=== PATIENT | female | born 1930 | race Caucasian/White ===

== ENCOUNTER → 2017-02-18 | Outpatient (CLI) | payer OTHER, MEDICARE ==
[~2017-02-18] VITALS: Ht 170.2 cm; Wt 88.0 kg
[~2017-02-18] MED LIST: ASPIR 8181 MG PO; CARDIZEM CD180 MG PO; CRESTOR10 MG PO; CRESTOR20 MG PO; HYZAAR 100-12.1 EACH PO; KLOR-CON 1010 MEQ PO; LEVOTHYROXIN0.075 MG PO; NORVASC10 MG PO; XARELTO15 MG PO
--- NOTE | ~2017-02-18 | HPC ---
[facility] [place] [place] [address] PAIN MANAGEMENT CONSULTATION Name: OLGA TATUM Room #: REG MAHESH Betsy#: [id number] Admission: 02/18/17 Attend Phys: Jordan Orellana DO Discharge: Date of : 30 Report #: [id number] THIS REPORT FOR: //name// CC: Angelito Barros DATE OF SERVICE: 02/18/2017 The patient is a pleasant 87-year-old female seen in consultation at the request of Dr. Davidson for evaluation of pain, low back, right lateral hip, thigh, down to the calf with a burning aspect of pain in the lateral calf. She notes pain has been present since 04/2014. She had tripped over her 's oxygen tubing, fell striking her knees. Within about 24 hours, pain started, has been quite problematic since. It has been continuous and burning and stabbing. She rates it a 7-10 on a VAS. She notes pain is exacerbated with rising from a sitting position or walking, gets some relief when she is recumbent. Has tried Tylenol and steroid injections, all with short-term relief. She denies any myelopathic symptoms. REVIEW OF SYSTEMS: Complete review of systems is attached to chart and gone over with the patient. She is now . She does not smoke, drink alcohol to excess. History of hypertension, treated with losartan and hydrochlorothiazide along with diltiazem. Atrial fibrillation for which she is on Xarelto. Levothyroxine for hypothyroidism and Crestor for dyslipidemia. SURGICAL HISTORY: Reviewed. 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 She has had 4 children, 2 sons and 2 daughters. Tragically one of her children has passed. Pain impact score averages about 5.2 for all indices queried. PHYSICAL EXAMINATION: Reveals a 5 feet 7 inches, 194-pound female, BMI is 30.4 kg/m2. Blood pressure is 184/75, pulse 69, respirations are 20. Cranial nerves 2-12 are grossly intact. Pupils are equal and reactive to light and accommodation. Extraocular muscles are intact. She does have a little bilateral arcus senilis. Thyroid is unremarkable. Cervical range of motion is full. Upper extremity strength is preserved. Heart is irregularly irregular with a subtle 1-2/6 systolic ejection murmur, pulses in the 60 range. Lungs are clear to auscultation. Abdomen shows an endomorphic build. Markedly antalgic gait with hyperlordosis, tender over the SI joints. Positive straight leg raise [facility] [address] [place] [address] PAIN MANAGEMENT CONSULTATION Name: OLGA TATUM Room #: REG MAHESH Meyer#: [id number] Admission: 02/18/17 Attend Phys: Jordan Orellana DO Discharge: Date of : 30 Report #: [id number] on the right with slight decreased right hip flexion, lower extremity extension strength. Patellar and Achilles reflexes do appear to be preserved. Gayle test is negative. DIAGNOSTIC STUDIES: Include MRI of the lumbar spine from 09/24/2016 notes bilateral facet arthropathy throughout from L1 down to S1. L4-L5 notes a superimposed right paracentral disk herniation with bilateral facet arthropathy and bilateral neural foraminal stenosis. ASSESSMENT: Symptomatic lumbar radiculopathy secondary to spinal stenosis, component of lumbar spondylosis and atrial fibrillation. RECOMMENDATIONS: Discussion with the patient today about therapeutic option. We elected to move forward with epidural injection under fluoroscopy, L4-L5. Three days off Eliquis. We will have the patient follow up in 3-4 weeks subsequent for consideration for repeat injection if indicated clinically. Thanks for allowing me to participate in the patient's care. I will keep you abreast of her progress. <ELECTRONICALLY SIGNED> By: Jordan Orellana DO 02/19/17 0654 1229 0103 Jordan Orellana DO /nt
[2017-02-18 10:54] VITALS: BP 184/75
== END ==
LOC: PAIN 07:44
DX: M47.26 Other spondylosis with radiculopathy, lumbar region (principal); M48.061 Spinal stenosis, lumbar region without neurogenic claudication; I48.91 Unspecified atrial fibrillation

== ENCOUNTER → 2017-05-13 | Outpatient (CLI) | payer OTHER, MEDICARE ==
[~2017-05-13] VITALS: Ht 170.2 cm; Wt 94.0 kg
[~2017-05-13] MED LIST changes: +COQ-10100 MG PO; +ELIQUIS5 MG PO; +PACERONE 200 M200 M1 PO; +VOLTAREN GEL 1100 G2 TOP
--- NOTE | ~2017-05-13 | HPC ---
[facility] [place] [place] [address] PAIN MANAGEMENT CONSULTATION Name: OLGA TATUM Room #: REG REBECCAJose L Castro.#: [id number] Admission: 05/13/17 Attend Phys: Jordan Orellana DO Discharge: Date of : 30 Report #: [id number] THIS REPORT FOR: //name// CC: Angelito Orellana HISTORY OF PRESENT ILLNESS: The patient is an 87-year-old female, prior seen in the pain clinic back in January with symptomatic lumbar radiculopathy. She had an epidural injection at that time with overall good improvement of pain. She returns to pain clinic today. She has significant interval medical history change. She was found to have atrial fibrillation, has been started on Eliquis. She notes the last injection in January afforded 50% relief, lasted for 2-3 weeks, pain has begun to recur. She is getting some paresthesia in the right knee to her foot with loss of sensation here. She does have subjective "drop foot" on this side; however, objective exam actually shows fairly good strength. She has not had any falls since last visit. She rates her pain as 7 on a VAS. Pain is in the low back, radiating to the right buttock and leg. PHYSICAL EXAMINATION: Shows an 87-year-old female, BMI is 32.4 kilograms per meter squared. Blood pressure 166/74, pulse 90, respirations 18. Marked antalgic gait. Tender from about L5 down. She does have a hyperlordotic curve. Right hip flexion strength is diminished. Positive straight leg raise on this side. Patellar reflex is diminished compared to the left, 1/4 versus 2/4. Skin/integument is intact. DIAGNOSTIC STUDIES: Include MRI from 09/2016. She has bilateral facet arthropathy at L1-L2, L2-L3 and L3-L4. Canal is narrowed at L3-L4 down to about 0.7 cm. L4-L5 does note superimposed right paracentral disk herniation with bilateral facet arthropathy. ASSESSMENT: 1. Symptomatic lumbar radiculopathy. 2. Axial back pain. 3. Lumbar spondylosis. 4. New history of atrial fibrillation and neuropathic pain. RECOMMENDATIONS: 1. Continue current medication unchanged (she has been off Eliquis for 4 days). 2. Epidural injection under fluoroscopy today at L4-L5. 3. Refer to neurosurgery for possible definitive intervention. She has had good relief with prior injection in January and February with recurrent symptoms and some increasing weakness. I want to make sure that there is no surgical pathology, which can be corrected. 4. If she does not get good relief with injection today and is not a surgical candidate, we will start the patient on membrane stabilizing agent (gabapentin?) at next visit. [address] [address] PAIN MANAGEMENT CONSULTATION Name: DEEPTIOLGA Room #: REG CLJose L Meyer#: [id number] Admission: 05/13/17 Attend Phys: Jordan Orellana DO Discharge: Date of : 30 Report #: [id number] Thank you for allowing me to participate in the patient's care. PROCEDURE: Lumbar epidural injection under fluoroscopy. PROCEDURE NOTE: After both written and informed consent to include risk of spinal cord damage, increased pain, weakness and dural puncture, the patient was taken to the fluoroscopy suite, placed in the prone position. After sterile prep and drape, a skin wheal with lidocaine was raised. A 22-gauge epidural Tuohy needle was inserted in the midline at L4-L5 with good loss to resistance. Negative aspiration for cerebrospinal fluid or blood was noted. Then 1 mL of Omnipaque under biplanar fluoroscopy showed good spread within the epidural space. This was followed with 80 mg of triamcinolone plus 1 mL of 1.5% preservative-free Xylocaine, 0.5 mL Xylocaine was then injected to flush the needle; it was removed. The patient was monitored for an appropriate period of time and discharged in good and stable condition. <ELECTRONICALLY SIGNED> By: Jordan Orellana DO 05/14/17 0757 1608 2220 Jordan Orellana DO /nt
[2017-05-13 11:09] VITALS: BP 166/74
== END | disposition home or self-care (01) ==
LOC: PAIN 03-22 13:46
DX: M47.26 Other spondylosis with radiculopathy, lumbar region (principal); Z68.32 Body mass index [BMI] 32.0-32.9, adult

== ENCOUNTER → 2017-06-10 | Outpatient (CLI) | payer OTHER, MEDICARE ==
[~2017-06-10] VITALS: Ht 170.2 cm; Wt 94.3 kg
--- NOTE | ~2017-06-10 | HPC ---
[facility] [place] [place] [address] PAIN MANAGEMENT CONSULTATION Name: OLGA TATUM Room #: REG [facility] Gloria.#: [id number] Admission: 06/10/17 Attend Phys: Jordan Orellana DO Discharge: Date of : 30 Report #: [id number] THIS REPORT FOR: //name// CC: Angelito Orellana The patient is a pleasant 87-year-old female, prior seen in pain clinic, given epidural injection on 05/13/2017. She returns to pain clinic today noting that the injection did afford good relief. The patient specifically notes 65% relief for 2 weeks. She is able to walk and stand with less pain currently. Still ongoing relief, though she does rate her pain as 6 on a VAS. PHYSICAL EXAMINATION: Shows a pleasant 87-year-old female with history of atrial fibrillation. She has been off her Eliquis for 3 days now. VITAL SIGNS: 5 feet 7 inches, 207 pounds. BMI is 32.5 kilograms per meter squared. Blood pressure 166/80, pulse 93, respirations are 20. She has not fallen in the last 3 months. Medications reconciled. Functional assessment tool 35/70. Rises from chair using armrest. Diffuse tenderness across the low back. There is a component of facet generated pain along with lumbar radiculopathy. We reviewed her MRI from 09/24/2016. It does show bilateral facet arthropathy at L1-2, L2-3, L3-4, L4-5 and L5-S1. Canals narrowed at L3-L4 to 0.7 cm. There is a small right focal disk at L4-L5. ASSESSMENT: Symptomatic lumbar radiculopathy and lumbar spondylosis. RECOMMENDATIONS: Discussion with the patient today about therapeutic option, would like to repeat epidural injection under fluoroscopy today. Resume Eliquis tonight. Voltaren gel topically for some right knee subjective pain and stiffness (anterior and posterior cruciate as well as medial and lateral collateral ligaments are intact. There is no ballottable edema in the knee). After L4-L5 epidural injection today, again resume Eliquis. Follow up in 3 weeks for reevaluation, may consider facet directed epidurals at next visit. She will not have to be off Eliquis for that. ASSESSMENT: Symptomatic lumbar radiculopathy. PROCEDURE: Lumbar epidural injection under fluoroscopy. PROCEDURE NOTE: After both written and informed consent to include risk of spinal cord damage, increased pain, weakness and dural puncture, the patient was taken to the fluoroscopy suite, placed in the prone position. After sterile prep and drape, a skin wheal with lidocaine was raised. A 22-gauge epidural Tuohy needle was inserted in the midline at L4-L5 with good loss to resistance. Negative aspiration for cerebrospinal fluid or blood was noted. Then 1 mL [address] [address] PAIN MANAGEMENT CONSULTATION Name: OLGA TATUM Room #: REG [facility] Betsy#: [id number] Admission: 06/10/17 Attend Phys: Jordan Orellana DO Discharge: Date of : 30 Report #: [id number] Omnipaque under biplanar fluoroscopy showed good spread within the epidural space. This was followed with 80 mg of triamcinolone plus 1 mL of 1.5% preservative-free Xylocaine, 0.5 mL Xylocaine was then injected to flush the needle; it was removed. The patient was monitored for an appropriate period of time and discharged in good and stable condition. The patient is to resume Eliquis tomorrow. <ELECTRONICALLY SIGNED> By: Jordan Orellana DO 06/16/17 0725 0701 1218 Jordan Orellana DO /nt
[2017-06-10 11:07] VITALS: BP 166/80
== END ==
LOC: PAIN 06-03 10:30
DX: M47.26 Other spondylosis with radiculopathy, lumbar region (principal); M48.061 Spinal stenosis, lumbar region without neurogenic claudication; Z68.32 Body mass index [BMI] 32.0-32.9, adult

== ENCOUNTER → 2017-06-28 | Outpatient (CLI) | payer OTHER, MEDICARE ==
[~2017-06-28] VITALS: Ht 170.2 cm; Wt 94.3 kg
--- NOTE | ~2017-06-28 | HPC ---
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 She is being treated for right lumbar radicular pain. We had had transient relief with epidural injections midline approach January, February and again 06/10/2017. Last visit, she was having some ongoing axial back pain. We are concerned for component of lumbar spondylosis. We talked about moving forward with facet joint injections if this injection does not afford good relief. The patient does return to the pain clinic noting that the last injection again afforded good yet transient relief. The patient specifically notes 50% relief. She is actually able to stand and walk with less pain. She is still unable to climb stairs due to some right hip flexion weakness. DIAGNOSTIC STUDIES: Note bilateral neural foraminal narrowing at L3-L4 with some facet hypertrophy and overall canal narrowing down to 0.7 cm. Some compression of the thecal sac is noted with crowding of the nerve roots; however, she does have a small right paracentral disk protrusion at L4-L5. There is some mild narrowing of the canal. PHYSICAL EXAMINATION: Shows a pleasant 87-year-old female, BMI is 32.5 kilograms per meter squared. Blood pressure shows modest hypertension 171/91, pulse 106, respirations are 20. Subjective pain score 6 on a VAS. She has been off her Eliquis for 4 days. She has not fallen in the last 6 weeks. She rises from chair using armrests, antalgic gait. Does have thoracolumbar kyphosis, some diffuse lumbar tenderness, no discrete trigger points are noted. Rotation and sidebending does not exacerbate pain. Axial component of back pain appears to be fairly nominal. Does have decreased right hip flexion strength. Positive straight leg raise on the right. ASSESSMENT: Symptomatic lumbar radiculopathy, component of lumbar spondylosis, the patient off Eliquis (history of atrial fibrillation). RECOMMENDATIONS: Discussion with the patient today about therapeutic option. We elected to trial a transforaminal epidural approach today and see if we can get more steroid to the anterior portion of the cord with a herniated disk. If this does not afford adequate relief, we will have the patient follow up with Dr. Morgan for consideration [place] [address] PAIN MANAGEMENT CONSULTATION Name: DEEPTIOLGA Room #: REG MAHESH Meyer#: [id number] Admission: 06/28/17 Attend Phys: Jordan Orellana DO Discharge: Date of : 30 Report #: [id number] ASSESSMENT: Symptomatic lumbar radiculopathy, right L4 radicular pain pattern. RECOMMENDATION: Transforaminal epidural injection under fluoroscopy. PROCEDURE: Transforaminal lumbar epidural injection under fluoroscopy. PROCEDURE NOTE: After both written and informed consent was obtained including risk of spinal cord damage, infection, increased pain and paralysis, the patient agreed to proceed. The patient was taken to the fluoroscopy suite, placed in a prone position with appropriate abdominal bolstering. After sterile prep with ChloraPrep and sterile drape, a skin wheal with 1% Xylocaine was raised. A 22 gauge 4-1/2 inch epidural Tuohy needle was inserted. From an oblique approach into the posterior-superior aspect of the left L4-L5 neural foramen with continuous pressure on the glass syringe plunger for loss of resistance. Glass syringe was filled with 2 cc of 0.1 Xylocaine. The glass loss of resistance syringe was removed. A low volume extension tubing was connected, negative aspiration was accomplished for cerebrospinal fluid or blood. 1 mL of Omnipaque was injected which showed spread both within the epidural space and laterally along the nerve root. This was followed with 80 mg of triamcinolone plus 1 mL of 1.5% preservative-free Xylocaine. Needle was partially withdrawn, 0.5 mL of Xylocaine was injected to clear the needle and the needle was removed. The area was cleansed, band-aid was applied. The patient was allowed to ambulate to the recovery room, discharged in good and stable condition. I intended to perform a right L4-L5 transforaminal epidural injection. I noted some osseous hypertrophy on the right. We proceeded with a left transforaminal epidural injection and did achieve good anterior flow of steroid. The patient was monitored for an appropriate period of time, discharged in good and stable condition. I am pleased to note she had good incremental relief of pain, it had been 6 on VAS admission, was absent, being a 0/10 on discharge. <ELECTRONICALLY SIGNED> By: Jordan Orellana DO 06/30/17 0820 1212 1228 Jordan Orellana DO /nt
[2017-06-28 10:23] VITALS: BP 171/91
== END | disposition home or self-care (01) ==
LOC: PAIN 07:21
DX: M54.16 Radiculopathy, lumbar region (principal); M47.896 Other spondylosis, lumbar region; G89.29 Other chronic pain; I10 Essential (primary) hypertension; I48.91 Unspecified atrial fibrillation; Z79.01 Long term (current) use of anticoagulants; Z79.899 Other long term (current) drug therapy; Z98.890 Other specified postprocedural states

== ENCOUNTER 2017-08-12 08:51 | Inpatient (IN) | payer OTHER, MEDICARE ==
[~2017-08-12] VITALS: Ht 170.2 cm; Wt 93.1 kg
--- NOTE | ~2017-08-12 | EKG ---
[address] [place] [address] ELECTROCARDIOGRAM REPORT Name: OLGA TATUM Room #: 214-P ADM IN M.R.#: [id number] Admission: 08/12/17 Attend Phys: Barry Jameson Discharge: Date of : 30 Report #: [id number] THIS REPORT FOR: //name// [facility] Test Date: 2017-08-12 Test Time: 13:16:04 Pat Name: OLGA TATUM Department: Room: 214 P Gender: F [employer] Assistant: Ade HICKEY : 1930 Requested By: Kathe Hanley Order Number: [id number] MD: Ramsey Price Measurements Intervals [place] Rate: 82 P: MD: QRS: 50 QRSD: 93 T: 64 QT: 357 QTc: 417 Interpretive Statements Sinus rhythm Nonspecific T abnormalities, lateral leads Compared to ECG 07/06/2014 20:51:38 sinus rhythm has replaced atrial fibrillation nonspecific change in the ST and T-wave segments Electronically Signed On 08-12-2017 17:32:16 CDT by Ramsey Price [email or web address] <ELECTRONICALLY SIGNED> By: Ramsey Price MD, [facility] 08/12/17 1732 1316 1316 Ramsey Price MD, [facility] /EPI
--- NOTE | ~2017-08-12 | P ---
[facility] [place] [address] PROCEDURE REPORT Name: OLGA TATUM Room #: 214-P DIS IN M.R.#: [id number] Admission: 08/12/17 Attend Phys: Barry Jameson Discharge: 08/13/17 Date of : 30 Report #: [id number] THIS REPORT FOR: //name// CC: Barry Davidson DATE OF SERVICE: 08/13/2017 PROCEDURES: 1. Electrical cardioversion. 2. Supervision of conscious sedation. INDICATIONS: The patient is a very pleasant 87-year-old female with symptomatic atrial fibrillation, which is paroxysmal. MANAGER PROCESS: Barry Jameson M.D. BRIEF DESCRIPTION: Informed consent was obtained, the patient brought to the cardiac catheterization laboratory, prep and hold. Was sedated with 2 of Versed and 25 of Demerol IV push. Continuous electrocardiographic and oximetric monitoring was performed throughout the procedure. Utilizing AP pads, a synchronized 200 joule biphasic shock was then performed, which converted the patient to sinus mechanism with a first-degree AV block. She was allowed to recover and was monitored closely. She did not have any complications, tolerated the procedure well. By: [id number] Barry Jameson MD /nt
--- NOTE | ~2017-08-12 | D ---
[facility] [place] [address] DISCHARGE SUMMARY Name: OLGA TATUM Room #: 214-P [facility] IN M.R.#: [id number] Admission: 08/12/17 Attend Phys: Barry Jameson Discharge: 08/13/17 Date of : 30 Report #: [id number] THIS REPORT FOR: //name// CC: Barry Davidson DATE OF SERVICE: 08/13/2017 ADMITTING DIAGNOSIS: Symptomatic paroxysmal atrial fibrillation. DISCHARGE DIAGNOSIS: Symptomatic paroxysmal atrial fibrillation. PROCEDURE PERFORMED: None. FOLLOWUP: 1. Dr. Barry Jameson in 4 weeks. 2. Nurse practitioner Kathe in 7-10 days. DISCHARGE MEDICATIONS: 1. Home meds. 2. Amiodarone 200 mg p.o. b.i.d. for a week, then q.a.m. daily. BRIEF CLINICAL HISTORY: See history and physical in the chart. HOSPITAL COURSE: The patient was admitted to the hospital and was started on IV amiodarone. The patient converted overnight to sinus rhythm with a first-degree AV block. In view of this, electrical cardioversion was canceled. She was allowed to ambulate and was discharged in improved and stable condition to follow up with the previously stated discharge instructions and medications. <ELECTRONICALLY SIGNED> By: Barry Jamseon MD 08/20/17 2102 1917 25 Barry Jameson MD /fozia
--- NOTE | ~2017-08-12 | H ---
[facility] [place] [place] [address] HISTORY AND PHYSICAL Name: OLGA TATUM Room #: 214-P [facility] IN M.R.#: [id number] Admission: 08/12/17 Attend Phys: Barry Jameson Discharge: 08/13/17 Date of : 30 Report #: [id number] THIS REPORT FOR: //name// CC: Barry Davidson DATE OF SERVICE: 08/12/2017 HISTORY OF PRESENT ILLNESS: This is a very pleasant female who had been seen as an outpatient for shortness of breath and irregular heartbeat, was found to be in atrial fibrillation. She subsequently had a noninvasive workup with a recent perfusion scan showing no significantly large area of ischemia. In view of this, she is being brought in after 4 weeks of anticoagulation with Eliquis for chemical cardioversion and initiation of antiarrhythmic medication. She has no orthopnea, PND, syncope or near syncope currently. PHYSICAL EXAMINATION: GENERAL: Shows well-developed, well-nourished female, resting comfortably, in no acute distress. VITAL SIGNS: Noted in the chart. HEENT: Normocephalic, atraumatic. Pupils are equal, round, reactive to light and accommodation. Extraocular muscles are intact. Sclerae and conjunctivae are anicteric. NECK: JVD is normal. Carotid upstrokes are bilaterally symmetrical. No bruits are heard. No thyromegaly. No lymphadenopathy. LUNGS: Clear to auscultation. No wheezes, rhonchi or crackles. No CVA tenderness. CARDIAC: Demonstrates an irregularly irregular rhythm with a controlled ventricular response. ABDOMEN: Soft, nontender, nondistended. Normal bowel sounds. EXTREMITIES: Without cyanosis, clubbing or edema. Distal pulses are intact. DTR symmetrical. NEUROLOGIC: Cranial nerves 2-12 are grossly normal and symmetrical. PSYCHIATRIC: Alert, oriented with normal affect. SKIN: Warm and dry. IMPRESSION AND PLAN: Atrial fibrillation, presumed to be paroxysmal, new in onset. After 4 weeks of anticoagulation, she is here for chemical cardioversion with initiation of antiarrhythmic medications. If this failed to convert to sinus mechanism, then she is to undergo electrical cardioversion. The risks, complications, and alternative including both chemical and electrical [address] [address] HISTORY AND PHYSICAL Name: OLGA TATUM Room #: 214-P [facility] IN [facility].#: [id number] Admission: 08/12/17 Attend Phys: Barry Jameson Discharge: 08/13/17 Date of : 30 Report #: [id number] cardioversion as well as conscious sedation have been discussed with the patient. She voiced understanding and wishes to proceed. <ELECTRONICALLY SIGNED> By: Barry Jameson MD 08/20/17 1919 0805 0850 Barry Jameson MD /nt
[~2017-08-12 08:51] MED LIST changes: -PACERONE 200 M200 M1 PO
[2017-08-12 12:30] VITALS: BP 120/78
[2017-08-12 13:31] LABS: HEMATOCRIT 38.8 % (37.0-47.0); HEMOGLOBIN 13.5 gm/dL (12.0-15.0); MCH 30.9 pg (26.0-34.0); MCHC 34.8 g/dL (28.0-37.0); MCV 88.8 fL (80.0-100.0); RBC 4.37 mil/uL (4.20-5.00); RDW 14.5 % (10.5-14.5); WBC 18.2 thou/uL (4.0-11.0)
[2017-08-12 13:38] LABS: CALCIUM 9.8 mg/dL (8.5-10.1); CREATININE 1.2 mg/dL (0.6-1.0); POTASSIUM 3.3 mmol/L (3.5-5.1)
[2017-08-12] MEDS ORDERED: ELIQUIS5 MG PO (15:22)
[2017-08-12 16:55] VITALS: BP 115/82
[2017-08-12 19:30] VITALS: BP 148/79
[2017-08-13 03:50] VITALS: BP 134/63
[2017-08-13 08:10] LABS: HEMATOCRIT 38.1 % (37.0-47.0); HEMOGLOBIN 12.8 gm/dL (12.0-15.0); MCH 30.2 pg (26.0-34.0); MCHC 33.7 g/dL (28.0-37.0); MCV 89.6 fL (80.0-100.0); RBC 4.25 mil/uL (4.20-5.00); RDW 14.6 % (10.5-14.5); WBC 13.4 thou/uL (4.0-11.0)
[2017-08-13 08:43] LABS: CREATININE 1.3 mg/dL (0.6-1.0)
[2017-08-13] MEDS ORDERED: PACERONE 200 M200 M1 PO (09:56)
[2017-08-13 10:00] VITALS: BP 150/74
== END 2017-08-13 11:09 | disposition home or self-care (01) | DRG 310 ==
LOC: NUC 08:51 → 2N 12:04 → ENTRNSPT 08-13 10:44 → 2N 08-13 11:09
PROVIDERS: Internal Medicine Cardiovascular Disease; Nurse Practitioner Gerontology
PROC: 5A2204Z Restoration of Cardiac Rhythm, Single (ICD-10-PCS; principal; 2017-08-13)
DX: I48.0 Paroxysmal atrial fibrillation (principal); I49.9 Cardiac arrhythmia, unspecified; Z79.01 Long term (current) use of anticoagulants
CPT/HCPCS: 10081

== ENCOUNTER → 2017-08-12 | Outpatient (CLI) | payer OTHER, MEDICARE | LOC: NUC 06:34 | DX: Z01.810 Encounter for preprocedural cardiovascular examination (principal); I48.91 Unspecified atrial fibrillation ==

== ENCOUNTER → 2018-11-10 | Outpatient (CLI) | payer OTHER, MEDICARE ==
[~2018-11-10] MED LIST changes: +PACERONE 200 M200 M1 PO
== END ==
LOC: ULTRA 10:30
DX: M71.21 Synovial cyst of popliteal space [Baker], right knee (principal)

== ENCOUNTER 2019-05-13 12:13 | Inpatient (IN) | payer OTHER, MEDICARE ==
[~2019-05-13] VITALS: Ht 172.7 cm; Wt 94.8 kg
[2019-05-13 12:13] VITALS: BP 148/51
[2019-05-13] MEDS ORDERED: VERAPAMIL ER120 MG PO (12:29)
[2019-05-13 12:58] LABS: ABSOLUTE NEUTROPHILS 10.8 thou/uL (1.4-8.2); BASOPHILS 0.5 % (0.0-2.0); EOSINOPHILS 0.6 % (0.0-3.0); HEMATOCRIT 38.2 % (37.0-47.0); HEMOGLOBIN 12.6 gm/dL (12.0-15.0); LYMPHOCYTES 5.1 % (24.0-44.0); MCH 30.1 pg (26.0-34.0); MCHC 32.9 g/dL (28.0-37.0); MCV 91.6 fL (80.0-100.0); MONOCYTES 11.4 % (1.0-8.0); PLATELET COUNT 269 thou/uL (150-400); POLYS 82.4 % (36.0-66.0); RBC 4.17 mil/uL (4.20-5.00); RDW 13.3 % (10.5-14.5); WBC 13.1 thou/uL (4.0-11.0)
[2019-05-13 13:05] LABS: ANION GAP 8 mmol/L (7-16); BUN 19 mg/dL (7-18); CALCIUM 10.1 mg/dL (8.5-10.1); CHLORIDE 98 mmol/L (98-107); CO2 29 mmol/L (21-32); CREATININE 1.6 mg/dL (0.6-1.0); GLUCOSE 149 mg/dL (74-106); SODIUM 135 mmol/L (136-145)
[2019-05-13 13:06] LABS: BE(vivo) 0.4 mmol/L (-2 to +3); HCO3 24.3 mmol/L (22.0-26.0); PCO2 36.7 mmHg (35.0-45.0); pH 7.438 (7.360-7.450); sO2 88.6 % (92.0-98.0)
[2019-05-13 13:07] LABS: PO2 52.7 mmHg (80.0-100.0)
[2019-05-13 13:15] LABS: ALBUMIN 3.5 g/dL (3.4-5.0); SGOT 23 U/L (15-37); SGPT 22 U/L (30-65); TOTAL BILIRUBIN 0.8 mg/dL (<0.1-1.0); TOTAL PROTEIN 7.3 g/dL (6.4-8.2); TROPONIN-I <0.06 ng/mL (<0.06)
[2019-05-13 16:20] VITALS: BP 119/44
[2019-05-13 16:29] VITALS: BP 123/58
--- NOTE | 2019-05-13 17:02 | NUR ---
REC PT FROM ED, A&0X4, AMB W/CLOSE SBA AND WALKER. LIVES W/DAUGHTER. SOA W/EXERTION. SHOWED HER CALL LIGHT DEMO, SHE SUCCESSFULLY DEMONSTRATES. CARDIAC MONITORED. SEE SEPARATE INTERVENTIONS FOR ASSESSMENTS. DOES NOT WEAR 02 AT HOME. DESAT TO UPPER 80% WITHOUT CURRENTLY. WILL CONTINUE TO MONITOR.
[2019-05-13 17:05] VITALS: BP 140/66
[2019-05-13] MEDS ORDERED: AMIODARONE HCL400 MG PO (17:39)
[2019-05-13 19:45] VITALS: BP 102/48
[2019-05-13 23:46] VITALS: BP 123/56
--- NOTE | 2019-05-14 03:22 | NUR ---
ASSUMED CARE AT 1900. PT ALERT AND ORIENTED. VSS. PT DENIES CHEST PAIN, NAUSEA AND VOMITNG. REPORTS SOB, RESPITORY TREATMENTS ON BOARD. PT STILL SOUNDS COURSE , WHEEZY AND CRACKLES. PT ORIENTED TO CALL LIGHT SYSTEM. NO FURTHER C/O AT THIS TIME. PT CURRENTLY STABLE. WILL CONTINUE TO MONITOR.
[2019-05-14 04:57] VITALS: BP 139/60
[2019-05-14 04:59] LABS: HEMOGLOBIN 11.6 gm/dL (12.0-15.0); MCH 30.3 pg (26.0-34.0); MCV 91.7 fL (80.0-100.0); RBC 3.82 mil/uL (4.20-5.00); RDW 13.6 % (10.5-14.5); WBC 12.3 thou/uL (4.0-11.0)
[2019-05-14 05:16] LABS: ANION GAP 9 mmol/L (7-16); BUN 22 mg/dL (7-18); CHLORIDE 98 mmol/L (98-107); CO2 28 mmol/L (21-32); CREATININE 1.6 mg/dL (0.6-1.0); GLUCOSE 196 mg/dL (74-106); MAGNESIUM 2.1 mg/dL (1.8-2.4); POTASSIUM 3.6 mmol/L (3.5-5.1); SODIUM 135 mmol/L (136-145); TROPONIN-I <0.06 ng/mL (<0.06)
[2019-05-14 05:30] LABS: CALCIUM 9.9 mg/dL (8.5-10.1)
[2019-05-14 05:46] LABS: BE(vivo) -5.9 mmol/L (-2 to +3); HCO3 18.1 mmol/L (22.0-26.0); PCO2 31.9 mmHg (35.0-45.0); PO2 86.3 mmHg (80.0-100.0); pH 7.371 (7.360-7.450); sO2 96.4 % (92.0-98.0)
[2019-05-14 07:12] VITALS: BP 148/64
[2019-05-14 11:52] VITALS: BP 152/62
[2019-05-14 16:18] VITALS: BP 133/73
--- NOTE | 2019-05-14 17:48 | NUR ---
ASSUMED CARE AT 0700, SHIFT ASSESMENT DONE, MEDS GIVEN, VSS. DENIES NAUSEA, VOMITING, PAIN. UP WITH STANDBY ASSIST, ON 1LNC. ON SCHEDULED BREATHING TREATMENT, FEELING BETTER. WILL CONTINUE TO ASSESS AND ASSIST WITH ADLs NEEDED.
--- NOTE | 2019-05-15 03:45 | NUR ---
PT ALERT AND ORIENTED. NO CHEST PAIN. SR ON THE MONITOR. CONTINUES WITH RT TREATMENTS. REMAINS COURSE, WHEEZY AND CRACKLES IN ALL LUNG SOLIS. O2 NEEDS REDUCED. CURRENTLY ON 1L AND TOLERATING FINE. STILL SOB WITH EXERTION. WILL CONTINUE TO MONITOR.
[2019-05-15 04:45] VITALS: BP 141/78
[2019-05-15 08:00] VITALS: BP 116/51
--- NOTE | 2019-05-15 09:54 | 2DMMODE ---
[facility] [address] [place] [address] 2 D/M-MODE ECHOCARDIOGRAM Name: OLGA TATUM Room #: 217-P ADM IN M.R.#: [id number] Admission: 05/13/19 Attend Phys: Sebas Aleman MD Discharge: Date of : 30 Report #: [id number] THIS REPORT FOR: //name// APPROVED REPORT Study performed: 05/15/2019 09:11:13 EXAM: Comprehensive 2D, Doppler, and color-flow Echocardiogram Patient Location: Bedside Room #: [facility] Status: routine BSA: 2.07 HR: 76 bpm BP: 139/65 mmHg Rhythm: NSR Other Information Study Quality: Excellent Indications Dyspnea, hypoxemia, cough. Hx: Afib, HTN. 2D Dimensions RVDd: 40.32 mm IVSd: 9.71 (7-11mm) LVOT Diam: 21.47 (18-24mm) LVDd: 47.94 mm PWd: 9.06 (7-11mm) Ascending Ao: 31.33 (22-36mm) LVDs: 32.55 (25-40mm) Aortic Root: 31.71 mm Volumes Left Atrial Volume (Systole) Single Plane 4CH: 64.12 mL Single Plane 2CH: 74.65 mL LA ESV Index: 36.00 mL/m2 Aortic Valve AoV Peak Grupo.: 2.48 m/s AO Peak Gr.: 24.63 mmHg LVOT Max P.51 mmHg AO Mean Gr.: 13.69 mmHg AO V2 Mean: 1.72 m/s LVOT Max V: 1.37 m/s AO V2 VTI: 53.11 cm KAHLIL Vmax: 2.00 cm2 Mitral Valve [facility] [address] [address] 2 D/M-MODE ECHOCARDIOGRAM Name: OLGA TATUM Room #: 217-P ADM IN .R.#: [id number] Admission: 05/13/19 Attend Phys: Sebas Aleman MD Discharge: Date of : 30 Report #: [id number] E/A Ratio: 1.1 MV Decel. Time: 225.71 ms MV E Max Grupo.: 1.23 m/s MV A Grupo.: 1.11 m/s MV PHT: 65.46 ms IVRT: 72.66 ms Pulmonary Valve PV Peak Grupo.: 1.12 m/s PV Peak Gr.: 5.02 mmHg Pulmonary Vein P Vein S: 0.62 m/s P Vein D: 0.49 m/s P Vein S/D Ratio: 1.27 Tricuspid Valve TR Peak Grupo.: 2.87 m/s RAP Estimate: 5.00 mmHg TR Peak Gr.: 33.00 mmHg PA Pressure: 38.00 mmHg Left Ventricle The left ventricle is normal size. There is normal LV segmental wall motion. There is normal left ventricular wall thickness. The left ventricular systolic function is normal. LVEF is 60-65%. Moderate diastolic dysfunction is present (pseudonormal filling). Right Ventricle The right ventricle is normal size. The right ventricular systolic function is normal. Atria Left atrium is mildly dilated. The right atrium size is normal. Aortic Valve The aortic valve is normal in structure. Leaflets are mildly thickened and calcified. No aortic regurgitation is present. There is no aortic valvular stenosis. Mitral Valve Mitral valve leaflets are mildly thickened. Mild mitral annular calcification. Trace to mild mitral regurgitation. No evidence of mitral valve stenosis. Tricuspid Valve The tricuspid valve is normal in structure. Mild tricuspid [facility] [address] [place] [address] 2 D/M-MODE ECHOCARDIOGRAM Name: OLGA TATUM Room #: 217-P [facility] IN M.R.#: [id number] Admission: 05/13/19 Attend Phys: Sebas Aleman MD Discharge: Date of : 30 Report #: [id number] regurgitation. Estimated PAP is 35-40mmHg. Pulmonic Valve Pulmonic valve is not well visualized. Trace pulmonic regurgitation. Great Vessels The aortic root is normal in size. The ascending aorta is normal in size. IVC is normal in size and collapses >50% with inspiration. Pericardium There is no pericardial effusion. <Conclusion> The left ventricle is normal size. There is normal left ventricular wall thickness. The left ventricular systolic function is normal. Moderate diastolic dysfunction is present (pseudonormal filling). The right ventricle is normal size. Left atrium is mildly dilated. The aortic valve is normal in structure. Leaflets are mildly thickened and calcified. Mild mitral annular calcification. Trace to mild mitral regurgitation. Mild tricuspid regurgitation. Estimated PAP is 35-40mmHg. <ELECTRONICALLY SIGNED> By: Erich Heck MD 05/15/19 0954 [id number] 09 Erich Heck MD /INF
--- NOTE | 2019-05-15 14:49 | EKG ---
[address] [address] ELECTROCARDIOGRAM REPORT Name: DEEPTIOLGA REYNA Room #: 217-P ADM IN M.R.#: [id number] Admission: 05/13/19 Attend Phys: Sebas Aleman MD Discharge: Date of : 30 Report #: [id number] THIS REPORT FOR: //name// 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1930 Requested By: Renetta Rocha Order Number: [id number] MD: Guanaco Love Measurements Intervals [place] Rate: 68 P: 87 NV: 168 QRS: 77 QRSD: 110 T: 213 QT: 410 QTc: 437 Interpretive Statements Sinus rhythm Nonspecific repol abnormality, diffuse leads Compared to ECG 08/12/2017 13:16:04 Early repolarization now present T-wave abnormality no longer present Electronically Signed On 05-15-2019 14:48:29 MANAGING DIRECTOR ATLAS by Guanaco Love [email or web address] <ELECTRONICALLY SIGNED> By: Guanaco Love MD 05/15/19 1448 1235 1235 Guanaco Love MD /SEN
--- NOTE | 2019-05-15 14:52 | EKG ---
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 : 1930 Requested By: Sebas Aleman Order Number: [id number] MD: Guanaco Love Measurements Intervals [place] Rate: 69 P: 68 [place]: 212 QRS: 73 QRSD: 107 T: 238 QT: 539 QTc: 578 Interpretive Statements Sinus rhythm Nonspecific repol abnormality, lateral leads Compared to ECG 08/12/2017 13:16:04 Early repolarization now present T-wave abnormality no longer present Electronically Signed On 05-15-2019 14:52:06 MAINTENANCE AND REPAIR WORKER by Guanaco Love [email or web address] <ELECTRONICALLY SIGNED> By: Guanaco Love MD 05/15/19 1452 7 7 Guanaco Love MD /SEN
[2019-05-15 16:00] VITALS: BP 138/49
--- NOTE | 2019-05-15 16:42 | NUR ---
Patient sleeping soundly. Patient admits from home for resp failure. Patient resides at home in independent home with all needs on one level. She uses a walker in home. Family assist with driving, therapy evals in process who recommend HH [place]. Will plan to discuss with patient for referral for HH care. casemgt following.
[2019-05-15 19:57] VITALS: BP 140/61
--- NOTE | 2019-05-16 03:57 | NUR ---
ASSUMED PT CARE AT 1900. PT IS ALERT AND ORIENTED WITH NO SIGN OF DISTRESS NOTED IN PT. FALL PRECAUTION IN PLACE, CALL LIGHT WITHIN REACH. NO FAMILY CURRENTLY AT BEDSIDE. DENIES ANY PAIN. VITAL SIGNS STABLE. ASSESSMENT COMPLETED AND DOCUMENTED. SCHEDULED MEDS ADMINISTERED TO PT. TOLERATED PO INTAKE. DENIES ANY FURTHER NEEDS AT THIS TIME. CONTINUE TO MONITOR PATIENT.
[2019-05-16 04:36] VITALS: BP 143/54
[2019-05-16 08:00] VITALS: BP 147/71
--- NOTE | 2019-05-16 11:37 | NUR ---
ASSUMED CARE AT 0700, SHIFT ASSESSMENT DONE, MEDS GIVEN, VSS. NSR, ROOM AIR, RECEIVING IV ANTIBIOTCS. DENIES PAIN, NAUSEA, VOMITING. WILL CONTINUE TO ASSESS AND ASSIST WITH ADLs NEEDED.
[2019-05-16 15:27] LABS: HEMATOCRIT 37.5 % (37.0-47.0); HEMOGLOBIN 12.3 gm/dL (12.0-15.0); MCHC 32.8 g/dL (28.0-37.0); MCV 91.6 fL (80.0-100.0); RBC 4.09 mil/uL (4.20-5.00); RDW 13.4 % (10.5-14.5); WBC 14.3 thou/uL (4.0-11.0)
[2019-05-16 15:34] LABS: CALCIUM 10.6 mg/dL (8.5-10.1); CREATININE 1.6 mg/dL (0.6-1.0); POTASSIUM 3.3 mmol/L (3.5-5.1)
[2019-05-16 16:40] VITALS: BP 123/57
--- NOTE | 2019-05-16 17:19 | NUR ---
met with patient and discussed HH [place]. She has list to review. She reports her dtr works nights but she will review HH list with her. Patient with sat/ex and sat dropped to 89 need to be 88 or below before ins covers oxygen. Casemgt following.
[2019-05-16 19:23] VITALS: BP 124/50
[2019-05-17 04:23] VITALS: BP 140/50
--- NOTE | 2019-05-17 05:10 | NUR ---
PT RESTING QUIETLY IN ROOM, NO C/O PAIN, VSS, WILL CON'T TO MONITOR PER PPOC.
[2019-05-17 08:00] VITALS: BP 144/54
[2019-05-17 11:00] VITALS: BP 120/52
[2019-05-17] MEDS ORDERED: ALBUTEROL2.5 MG/31 INH (12:28)
[2019-05-17] MEDS ORDERED: PULMICORT0.5 MG/21 INH (12:28)
[2019-05-17] MEDS ORDERED: MUCINEX600 MG PO (12:28)
[2019-05-17] MEDS ORDERED: AZITHROMYCIN 2250 MG PO (12:28)
[2019-05-17] MEDS ORDERED: CEFUROXIME500 MG PO (12:28)
[2019-05-17] MEDS ORDERED: ACYCLOVIR 400400 MG PO (12:28)
--- NOTE | 2019-05-17 14:10 | NUR ---
FAXED REFERRAL TO [facility] SPOKE WITH JELANI IN INTAKE SHE RECEIVED REFERRAL AND WILL REVIEW.
[2019-05-17 14:48] VITALS: BP 120/52
--- NOTE | 2019-05-17 14:54 | NUR ---
ASSUMED CARE AT 0700, SHIFT ASSESMENT DONE, MEDS GIVEN, VSS. DENIES PAIN, NAUSEA, VOMITING. UP WITH STANDBY. DC ORDERS RECEVIED, PERIPHERAL IV WAS TAKEN OUT. DC PAPER WORKS GIVEN.
[2019-05-17 14:58] VITALS: BP 120/52
[2019-05-17 15:04] VITALS: BP 120/52
--- NOTE | 2019-05-17 15:04 | NUR ---
patient to dc home with HH care no preference wants agency that services [facility] accepting of HH care. patients PCP Dr Pace who she has seen in last year. Patient with need for home oxygen. Faxed pertinent information including scripts for home oxygen and nebulizer. nebulier and home oxygen to be delivered to home [address]ified address [id number]. family at bedside aware of home oxygen and nebulizer for home no further needs
== END 2019-05-17 15:44 | disposition home health service (06) | DRG 871 ==
LOC: ER 12:13 → 2N 16:35 → EROBS 16:35 → 2N 16:42 → ENTRNSPT 05-17 15:22 → EDTRNSPTSTS 05-17 15:25 → 2N 05-17 15:44
PROVIDERS: Physician Assistant; ADMIT Internal Medicine
DX: A41.9 Sepsis, unspecified organism (principal); J96.01 Acute respiratory failure with hypoxia; I48.20 Chronic atrial fibrillation, unspecified; N18.4 Chronic kidney disease, stage 4 (severe); J40 Bronchitis, not specified as acute or chronic; E87.6 Hypokalemia; Z66 Do not resuscitate; E03.9 Hypothyroidism, unspecified; R91.1 Solitary pulmonary nodule; E78.5 Hyperlipidemia, unspecified; R54 Age-related physical debility; M54.5 Low back pain; I12.9 Hypertensive chronic kidney disease with stage 1 through stage 4 chronic kidney disease, or unspecified chronic kidney disease; Z79.01 Long term (current) use of anticoagulants; Z79.899 Other long term (current) drug therapy; Z90.49 Acquired absence of other specified parts of digestive tract; Z98.42 Cataract extraction status, left eye; Z98.41 Cataract extraction status, right eye
CPT/HCPCS: 10081

== ENCOUNTER → 2019-06-15 | Outpatient (CLI) | payer OTHER, MEDICARE ==
[~2019-06-15] MED LIST changes: +ACYCLOVIR 400400 MG PO; +ALBUTEROL2.5 MG/31 INH; +AMIODARONE HCL400 MG PO; +AZITHROMYCIN 2250 MG PO; +CEFUROXIME500 MG PO; +MUCINEX600 MG PO; +PULMICORT0.5 MG/21 INH; +VERAPAMIL ER120 MG PO
== END ==
LOC: RAD 13:44
DX: J90 Pleural effusion, not elsewhere classified (principal); J98.4 Other disorders of lung

== ENCOUNTER → 2019-11-02 | Outpatient (CLI) | payer OTHER, MEDICARE | LOC: SJCVCIMAG 08:53 | PROVIDERS: ATTEND Internal Medicine | DX: I08.0 Rheumatic disorders of both mitral and aortic valves (principal); R94.31 Abnormal electrocardiogram [ECG] [EKG]; I48.0 Paroxysmal atrial fibrillation; I10 Essential (primary) hypertension; Z79.899 Other long term (current) drug therapy ==